=== PATIENT | female | born 1990 | race Caucasian/White ===

== ENCOUNTER 2020-12-16 10:11 | Inpatient (IN) | payer OTHER ==
[2020-12-16 10:33] LABS: BILIRUBIN NEGATIVE (NEGATIVE); BLOOD NEGATIVE Ery/uL (NEGATIVE); CLARITY CLEAR (CLEAR); COLOR YELLOW (YELLOW); GLUCOSE (U) NORMAL (NORMAL); LEUKOCYTES NEGATIVE Leu/uL (NEGATIVE); NITRITE NEGATIVE (NEGATIVE); PROTEIN NEGATIVE (NEGATIVE); UROBILINOGEN 0.2 mg/dL (0.2-1.0); pH 6.5 (5.0-9.0)
[2020-12-16 10:35] LABS: AMPHETAMINES NEGATIVE (NEGATIVE); BARBITURATES NEGATIVE (NEGATIVE); ECSTASY (MDMA) NEGATIVE (NEGATIVE); MARIJUANA (THC) NEGATIVE (NEGATIVE); METHADONE NEGATIVE (NEGATIVE); OPIATES NEGATIVE (NEGATIVE); OXYCODONE NEGATIVE (NEGATIVE)
[2020-12-16 12:53] LABS: HCT 37.4 % (37.0-47.0); HGB 12.8 g/dl (12.5-16.0); MCH 29.3 pg (25.0-31.0); MCHC 34.2 g/dL (32.0-36.0); MCV 85.6 fL (78.0-100.0); MPV 11.3 fL (6.0-9.5); RBC 4.37 M/uL (4.20-5.40); RDW 13.5 % (11.5-14.0); WBC 10.3 K/uL (4.0-10.5)
[2020-12-16 15:28] LABS: BILIRUBIN NEGATIVE (NEGATIVE); BLOOD 2+ Ery/uL (NEGATIVE); CLARITY CLEAR (CLEAR); COLOR YELLOW (YELLOW); GLUCOSE (U) NORMAL (NORMAL); LEUKOCYTES NEGATIVE Leu/uL (NEGATIVE); NITRITE NEGATIVE (NEGATIVE); PROTEIN NEGATIVE (NEGATIVE); UROBILINOGEN 0.2 mg/dL (0.2-1.0)
[2020-12-16 15:37] LABS: BACTERIA TRACE; MUCOUS TRACE; SQUAMOUS EPITHELIAL CELLS RARE
[2020-12-16 15:38] LABS: AMORPHOUS PHOSPHATE CRYSTALS TRACE
[2020-12-17 06:38] LABS: HCT 28.2 % (37.0-47.0); HGB 9.4 g/dl (12.5-16.0); MCHC 33.3 g/dL (32.0-36.0); MPV 10.5 fL (6.0-9.5); RBC 3.24 M/uL (4.20-5.40); RDW 13.8 % (11.5-14.0); WBC 14.9 K/uL (4.0-10.5)
== END 2020-12-18 15:25 | disposition home or self-care (01) | DRG 787 ==
LOC: FOB 10:11 → FOD 14:51 → FOB 14:53
PROVIDERS: ADMIT Obstetrics & Gynecology
PROC: 10D00Z1 Extraction of Products of Conception, Low, Open Approach (ICD-10-PCS; principal; 2020-12-16 13:00)
DX: O99.02 Anemia complicating childbirth (principal); D62 Acute posthemorrhagic anemia; Z37.0 Single live birth; Z3A.38 38 weeks gestation of pregnancy; O43.193 Other malformation of placenta, third trimester; O26.843 Uterine size-date discrepancy, third trimester; O35.8XX0 Maternal care for other (suspected) fetal abnormality and damage, not applicable or unspecified; Z20.822 Contact with and (suspected) exposure to COVID-19; O99.214 Obesity complicating childbirth; O26.893 Other specified pregnancy related conditions, third trimester; Z88.0 Allergy status to penicillin
CPT/HCPCS: 36415; 36600; 80305; 81001; 81003; 82803; 84112; J0690; J1885; J2274; J2370; J3010; J7120; U0002